=== PATIENT | male | born 1940 | race Caucasian/White ===

== ENCOUNTER → 2017-03-09 | Outpatient (CLI) | payer MEDICARE, BC ==
[~2017-03-09] MED LIST: ACID REDUCER10 MG PO; ACTOS30 MG PO; ALPHAGAN P 5 ML5 M1 OPH; ASPIR 8181 MG PO; ASPIRIN CHEWABL81 MG PO; ASPIRIN PO; ATENOLOL PO; ATENOLOL25 MG PO; ATORVASTATIN CA40 M1 PO; B-50 COMPLEX PO; BACTRIM DS 8001 TA1 PO; CIPRO500 MG PO; GLUCOPHAGE1000 MG PO; LANTUS100 U/ML SQ; LIPITOR40 MG PO; LUMIGAN50 DRP OPH; METFORMIN HCL1000 MG PO; PLAVIX75 MG PO; PRAVACHOL80 MG PO; SUPER EPA 2002000 MG PO; VIT D PO; [UNRECOGNIZED DRUG - OTHER] PO
[2017-03-09 08:05] LABS: HEMOGLOBIN A1c 6.9 % (4.8-5.6)
== END | disposition home or self-care (01) ==
LOC: LAB 06:57
DX: E11.9 Type 2 diabetes mellitus without complications (principal)

== ENCOUNTER 2017-03-15 19:20 | Emergency (ER) | payer MEDICARE, BC ==
[~2017-03-15] VITALS: Ht 182.8 cm; Wt 97.5 kg
[2017-03-15 19:40] VITALS: BP 126/61
[2017-03-15] MEDS ORDERED: FISH OIL500 M2 PO (19:43)
[2017-03-15] MEDS ORDERED: XALATAN 0.005%2.5 ML INTRAOC (19:45)
[2017-03-15] MEDS ORDERED: BETIMOL5 M1 OP (19:45)
[2017-03-15] MEDS ORDERED: KEFLEX500 M1 PO (19:52)
== END 2017-03-15 20:00 | disposition home or self-care (01) ==
LOC: ED 19:20
DX: L03.113 Cellulitis of right upper limb (principal); Z88.8 Allergy status to other drugs, medicaments and biological substances; Z79.4 Long term (current) use of insulin; Z79.82 Long term (current) use of aspirin; Z79.899 Other long term (current) drug therapy; Z95.1 Presence of aortocoronary bypass graft

== ENCOUNTER → 2017-09-13 | Outpatient (CLI) | payer MEDICARE, BC ==
[~2017-09-13] MED LIST changes: +BETIMOL5 M1 OP; +FISH OIL500 M2 PO; +KEFLEX500 M1 PO; +XALATAN 0.005%2.5 ML INTRAOC
[2017-09-13 09:36] LABS: CHLORIDE 104 mmol/L (98-107); POTASSIUM 4.2 mmol/L (3.5-5.1); SODIUM 138 mmol/L (136-145)
[2017-09-13 09:43] LABS: ALBUMIN 3.8 gm/dl (3.1-4.5); ALKALINE PHOSPHATASE 75 U/L (45-117); BUN 26 mg/dl (7-24); CREATININE 0.98 mg/dL (0.70-1.30); SGOT/AST 19 IU/L (3-35); SGPT/ALT 27 U/L (12-78); TOTAL PROTEIN 7.3 gm/dL (6.4-8.2)
== END | disposition home or self-care (01) ==
LOC: LAB 08:31
DX: E11.9 Type 2 diabetes mellitus without complications (principal)

== ENCOUNTER → 2017-11-02 | Outpatient (CLI) | payer MEDICARE, BC ==
[2017-11-02 10:06] LABS: VITAMIN D, 25-HYDROXY 51.9 ng/mL (30-100)
== END | disposition home or self-care (01) ==
LOC: LAB 07:13
PROVIDERS: Psychiatry & Neurology Neurology
DX: G62.9 Polyneuropathy, unspecified (principal); R27.0 Ataxia, unspecified; E11.9 Type 2 diabetes mellitus without complications

== ENCOUNTER 2017-12-04 00:29 | Emergency (ER) | payer MEDICARE, BC ==
[~2017-12-04] VITALS: Ht 185.4 cm; Wt 99.8 kg
[2017-12-04 00:39] VITALS: BP 138/57
[2017-12-04] MEDS ORDERED: MEDROL DOSEPAK4 MG PO (02:07)
[2017-12-04] MEDS ORDERED: NAPROSYN500 MG PO (02:07)
[2017-12-04] MEDS ORDERED: CYCLOBENZAPRINE10 MG PO (02:07)
== END 2017-12-04 02:11 | disposition home or self-care (01) ==
LOC: ED 00:29
DX: S16.1XXA Strain of muscle, fascia and tendon at neck level, initial encounter (principal); F17.200 Nicotine dependence, unspecified, uncomplicated; Z88.8 Allergy status to other drugs, medicaments and biological substances; Z79.899 Other long term (current) drug therapy; Z79.82 Long term (current) use of aspirin; X58.XXXA Exposure to other specified factors, initial encounter; Y93.89 Activity, other specified; Y92.89 Other specified places as the place of occurrence of the external cause; Y99.8 Other external cause status

== ENCOUNTER 2018-02-23 09:39 | Emergency (ER) | payer MEDICARE, BC ==
[~2018-02-23] VITALS: Ht 182.8 cm; Wt 98.9 kg
[~2018-02-23 09:39] MED LIST changes: +CYCLOBENZAPRINE10 MG PO; +MEDROL DOSEPAK4 MG PO; +NAPROSYN500 MG PO
[2018-02-23 10:29] LABS: BASO % 0.6 % (0.0-1.0); EOS # 0.1 10*3/uL (0.0-0.4); EOS % 1.5 % (1.0-4.0); HEMOGLOBIN 13.3 g/dl (14.0-18.0); LYMPH # 2.1 10*3/uL (1.3-4.4); MEAN CELL VOLUME 96.5 fl (80.0-94.0); MEAN CORPUSCULAR HGB 31.3 pg (27.0-31.0); MEAN CORPUSCULAR HGB CONC 32.4 g/dl (33.0-37.0); MEAN PLATELET VOLUME 11.8 fl (9.6-12.3); MONO # 0.5 10*3/uL (0.1-1.0); MONO % 7.6 % (3.0-9.0); PLATELET COUNT AUTOMATED 163 10*3/uL (130-400); RED BLOOD COUNT 4.25 10*6/uL (4.50-5.90); RED CELL DISTRI WIDTH 14.2 % (0-14.5); WHITE BLOOD COUNT 6.7 10*3/uL (4.8-10.8)
[2018-02-23 10:38] LABS: BILIRUBIN NEGATIVE (NEGATIVE); BLOOD NEGATIVE (NEGATIVE); CLARITY SL CLOUDY (CLEAR); COLOR YELLOW (YELLOW); GLUCOSE NEGATIVE (NEGATIVE); KETONE NEGATIVE (NEGATIVE); LEUKO ESTERASE NEGATIVE (NEGATIVE); NITRITE NEGATIVE (NEGATIVE); UROBILINOGEN 0.2 E.U./dl (0.2-1.0)
[2018-02-23 10:42] LABS: ACT PARTIAL THROMBO TIME 25.4 SECONDS (20.8-31.5); INTERNATIONAL NORM RATIO 1.1 (2.0-3.5)
[2018-02-23 10:44] LABS: ALBUMIN 3.5 gm/dl (3.1-4.5); ALKALINE PHOSPHATASE 68 U/L (45-117); BUN 22 mg/dl (7-24); CHLORIDE 102 mmol/L (98-107); CREATININE 1.01 mg/dL (0.70-1.30); POTASSIUM 4.5 mmol/L (3.5-5.1); SGOT/AST 22 IU/L (3-35); SGPT/ALT 26 U/L (12-78); SODIUM 139 mmol/L (136-145); TOTAL PROTEIN 6.8 gm/dL (6.4-8.2)
[2018-02-23 10:55] LABS: BACTERIA TRACE; MUCOUS 1+
[2018-02-23 11:24] VITALS: BP 144/54
== END 2018-02-23 11:55 | disposition home or self-care (01) ==
LOC: ED 09:39
PROVIDERS: Emergency Medicine
DX: R41.0 Disorientation, unspecified (principal); R51 Headache; R00.1 Bradycardia, unspecified; I10 Essential (primary) hypertension; E11.9 Type 2 diabetes mellitus without complications; Z98.890 Other specified postprocedural states; Z95.1 Presence of aortocoronary bypass graft; Z79.899 Other long term (current) drug therapy; Z79.82 Long term (current) use of aspirin; Z88.8 Allergy status to other drugs, medicaments and biological substances; Z79.4 Long term (current) use of insulin

== ENCOUNTER → 2018-03-01 | Outpatient (CLI) | payer MEDICARE, BC ==
[2018-03-01 08:34] LABS: CHLORIDE 102 mmol/L (98-107); POTASSIUM 4.2 mmol/L (3.5-5.1); SODIUM 139 mmol/L (136-145)
[2018-03-01 09:00] LABS: ALBUMIN 3.6 gm/dl (3.1-4.5); ALKALINE PHOSPHATASE 67 U/L (45-117); CHOLESTEROL 122 mg/dL (<200); CREATININE 0.96 mg/dL (0.70-1.30); HDL CHOLESTEROL 37 mg/dl (40-60); LDL CHOLESTEROL 70 mg/dL (9-159); SGOT/AST 21 IU/L (3-35); SGPT/ALT 23 U/L (12-78); TRIGLYCERIDES 75 mg/dl (<150); VLDL CHOLESTEROL 15 mg/dL (6-40)
[2018-03-01 09:48] LABS: BUN 22 mg/dl (7-24)
== END | disposition home or self-care (01) ==
LOC: LAB 07:05
DX: E11.65 Type 2 diabetes mellitus with hyperglycemia (principal); E78.2 Mixed hyperlipidemia

== ENCOUNTER → 2018-05-10 | Outpatient (CLI) | payer MEDICARE, BC ==
[~2018-05-10] MED LIST changes: -BETIMOL5 M1 OP; +BETIMOL5 M1 OU; +LEVOTHYROXINE50 MCG PO; -XALATAN 0.005%2.5 ML INTRAOC; +XALATAN 0.005%2.5 ML OU
--- NOTE | ~2018-05-10 | ST ---
[place], [place] EXERCISE STRESS TEST REPORT [id number] UN[facility] #: [id number] ROOM: DOCTOR: KANDICE UPTON MD BIRTHDATE: [birth year] DOS: 05/10/2018 LEXISCAN PORTION OF THE LEXISCAN CARDIOLITE Baseline cardiogram normal sinus rhythm with nonspecific ST-T changes, 0.4 mg of Lexiscan, duration of 10 seconds, the patient did have some ST depression in the inferior leads and also the lateral leads, also has some chest heaviness. Isolated PVCs are present. ST slowly reverted back to baseline. FINAL IMPRESSION: Abnormal EKG response with ST depression in the inferior and lateral leads. Positive chest pressure. Positive shortness of breath. Blood pressure and heart rate response were normal. Nuclear images will be reported separately. KANDICE UPTON MD CM:STRESS:EXERCISE STRESS TEST REPORT [id number] KANDICE UPTON MD
== END | disposition home or self-care (01) ==
LOC: CARD 01:57
DX: R94.31 Abnormal electrocardiogram [ECG] [EKG] (principal); I25.10 Atherosclerotic heart disease of native coronary artery without angina pectoris

== ENCOUNTER → 2018-09-09 | Outpatient (CLI) | payer MEDICARE, BC ==
[2018-09-09 08:06] LABS: ALBUMIN 3.6 gm/dl (3.1-4.5); ALKALINE PHOSPHATASE 77 U/L (45-117); BUN 27 mg/dl (7-24); CHLORIDE 102 mmol/L (98-107); CHOLESTEROL 134 mg/dL (<200); CREATININE 0.95 mg/dL (0.70-1.30); HDL CHOLESTEROL 39 mg/dl (40-60); LDL CHOLESTEROL 76 mg/dL (9-159); POTASSIUM 4.4 mmol/L (3.5-5.1); SGOT/AST 24 IU/L (3-35); SGPT/ALT 29 U/L (12-78); SODIUM 139 mmol/L (136-145); TOTAL PROTEIN 6.9 gm/dL (6.4-8.2); TRIGLYCERIDES 93 mg/dl (<150); VLDL CHOLESTEROL 19 mg/dL (6-40)
[2018-09-09 08:11] LABS: FREE T4 1.18 ng/dl (0.76-1.46)
== END | disposition home or self-care (01) ==
LOC: LAB 07:05
PROVIDERS: Physician Assistant Medical
DX: E11.65 Type 2 diabetes mellitus with hyperglycemia (principal); I10 Essential (primary) hypertension; E78.00 Pure hypercholesterolemia, unspecified; E03.9 Hypothyroidism, unspecified

== ENCOUNTER → 2019-07-06 | Outpatient (CLI) | payer MEDICARE, BC ==
[~2019-07-06] MED LIST changes: +BALANCED B-501 EAC1 PO; +FISH OIL 1,0001 EAC3 PO; +RANEXA500 M1 PO; +SIMBRINZA 1%-0.28 ML OP; +VITAMIN D-32000 UNI1 PO
[2019-07-06 15:21] LABS: ACT PARTIAL THROMBO TIME 27.9 SECONDS (20.0-32.1)
== END | disposition home or self-care (01) ==
LOC: LAB 13:34 → RAD 13:34
PROVIDERS: Internal Medicine
DX: M48.56XA Collapsed vertebra, not elsewhere classified, lumbar region, initial encounter for fracture (principal); D68.8 Other specified coagulation defects

== ENCOUNTER → 2019-07-10 | Outpatient (CLI) | payer MEDICARE, BC ==
[~2019-07-10] VITALS: Ht 182.8 cm; Wt 102.1 kg
[2019-07-10 08:05] LABS: ACT PARTIAL THROMBO TIME 27.8 SECONDS (20.0-32.1)
--- NOTE | 2019-07-10 09:00 | NUR ---
DR. ROBLEDO SPOKE TO PATIENT AND FAMILY. PROCEDURE CANCELLED. IV D'CD, CATHETER INTACT, 2X2 APPLIED. DISCHARGED AMBULATORY WITH FAMILY.
== END | disposition home or self-care (01) ==
LOC: SDC 07-07 01:51
PROVIDERS: Internal Medicine
DX: M48.56XA Collapsed vertebra, not elsewhere classified, lumbar region, initial encounter for fracture (principal); I25.10 Atherosclerotic heart disease of native coronary artery without angina pectoris; I10 Essential (primary) hypertension; E11.9 Type 2 diabetes mellitus without complications; K21.9 Gastro-esophageal reflux disease without esophagitis; I25.2 Old myocardial infarction; Z95.5 Presence of coronary angioplasty implant and graft; Z98.890 Other specified postprocedural states; Z82.3 Family history of stroke

== ENCOUNTER 2019-12-08 17:51 | Inpatient (IN) | payer MEDICARE, BC ==
[~2019-12-08] VITALS: Ht 182.8 cm; Wt 96.6 kg
[2019-12-08 17:55] VITALS: BP 164/71
[2019-12-08 18:22] LABS: BASO % 0.3 % (0.0-1.0); HEMATOCRIT 40.6 % (42.0-52.0); HEMOGLOBIN 13.4 g/dl (14.0-18.0); LYMPH % 14.5 % (27.0-41.0); MEAN CELL VOLUME 97.4 fl (80.0-94.0); MEAN CORPUSCULAR HGB 32.1 pg (27.0-31.0); MEAN PLATELET VOLUME 11.5 fl (9.6-12.3); MONO # 0.1 10*3/uL (0.1-1.0); NEUT % 83.5 % (47.0-73.0); PLATELET COUNT AUTOMATED 170 10*3/uL (130-400); RED BLOOD COUNT 4.17 10*6/uL (4.50-5.90); WHITE BLOOD COUNT 7.2 10*3/uL (4.8-10.8)
[2019-12-08 18:34] LABS: ALBUMIN 3.5 gm/dl (3.1-4.5); ALKALINE PHOSPHATASE 69 U/L (45-117); BUN 22 mg/dl (7-24); CHLORIDE 107 mmol/L (98-107); CREATININE 0.99 mg/dL (0.70-1.30); POTASSIUM 4.5 mmol/L (3.5-5.1); SGOT/AST 39 IU/L (3-35); SGPT/ALT 35 U/L (12-78); SODIUM 139 mmol/L (136-145); TOTAL PROTEIN 6.8 gm/dL (6.4-8.2)
[2019-12-08 18:36] LABS: TROPONIN I < 0.015 ng/ml (<0.045)
[2019-12-08 20:46] VITALS: BP 131/47
[2019-12-08 23:00] VITALS: BP 141/64
--- NOTE | 2019-12-08 23:00 | NUR ---
A 79, admitted to , under the services of Dr. KYRA CANO,HI Fitch with a diagnosis of CHEST PAIN WITH HIGH RISK OF CARDIAC ETIOLOGY. Chief complaint is CHEST PAIN. Patient arrived via wheel chair from ER. Monitor applied. Initial assessment completed. Vital signs taken and recorded. DR. KYRA CANO,HI Fitch notified of admission to the unit. Orders received. See assessment for past medical history, medications and allergies. Patient and/or family oriented to unit. [address] visitation policy reviewed. Clothing/patient valuable form completed. VIRGILIO MIDDLETON
--- NOTE | 2019-12-08 23:46 | NUR ---
PT RESTING COMFORTABLY IN BED. HE STATES THAT HE IS NOT EXPERIENCING ANY CHEST PAIN AT THIS TIME AND "FEELS PERFECTLY FINE" BED IS LOW. CALL LIGHT WITHIN REACH. WILL CONTINUE TO MONITOR.
--- NOTE | 2019-12-09 06:26 | NUR ---
CALL MADE TO DR. AMARO. AWAITING CALL BACK.
[2019-12-09 08:00] VITALS: BP 152/56
--- NOTE | 2019-12-09 10:25 | NUR ---
CONSULT CALLED TO . AWAITING CALL BACK.
--- NOTE | 2019-12-09 11:53 | NUR ---
BSG 261. REFUSING COVERAGE. SAID HE WILL TAKE CARE OF IT AT HOME. ALSO STATING THAT HE WILL BE LEAVING BY 1300 TODAY EVEN IF IS NOT TO HOSPITAL BY THAT TIME. EDUCATION ON RISKS BY LEAVING AMA. STATED HE "DOESN'T CARE .
[2019-12-09 12:00] VITALS: BP 129/41
--- NOTE | 2019-12-09 12:47 | NUR ---
PT SIGNED AMA. HEART MONITOR COLLECTED, IV REMOVED. ROSALBA RN MANAGER ENVIRONMENTAL HEALTH AND SAFETY AWARE. AWARE.
--- NOTE | 2019-12-09 12:51 | NUR ---
Patient signed out AMA. Patient encouraged to stay and advised of possible consequences of premature discharge. Physician and metal furniture assembly supervisor ERIC NAVARRETE notified. Patient instructed what to do regarding care post-departure from the hospital; emergency phone numbers provided. Patent was accompanied by . [facility]
== END 2019-12-09 13:00 | disposition left against medical advice (07) | DRG 313 ==
LOC: ED 17:51 → EDHOLD 22:23 → 4E 22:33
PROVIDERS: Internal Medicine; ADMIT Internal Medicine
DX: R07.89 Other chest pain (principal); I25.10 Atherosclerotic heart disease of native coronary artery without angina pectoris; E78.5 Hyperlipidemia, unspecified; K21.9 Gastro-esophageal reflux disease without esophagitis; E11.9 Type 2 diabetes mellitus without complications; Z53.29 Procedure and treatment not carried out because of patient's decision for other reasons; Z95.5 Presence of coronary angioplasty implant and graft

== ENCOUNTER → 2020-07-11 | Outpatient (CLI) | payer MEDICARE, BC ==
[2020-07-11 09:00] LABS: CHOLESTEROL 131 mg/dL (<200); HDL CHOLESTEROL 39 mg/dl (40-60); LDL CHOLESTEROL 68 mg/dL (9-159); TRIGLYCERIDES 119 mg/dl (<150); VLDL CHOLESTEROL 24 mg/dL (6-40)
== END | disposition home or self-care (01) ==
LOC: LAB 07:04
PROVIDERS: ATTEND Internal Medicine Cardiovascular Disease
DX: E78.5 Hyperlipidemia, unspecified (principal)

== ENCOUNTER → 2020-08-28 | Outpatient (CLI) | payer MEDICARE, BC ==
[2020-08-28 09:23] LABS: BUN 24 mg/dl (7-24); CREATININE 0.93 mg/dL (0.70-1.30)
== END | disposition home or self-care (01) ==
LOC: LAB 08:52
PROVIDERS: ATTEND Physician Assistant Surgical
DX: Z01.812 Encounter for preprocedural laboratory examination (principal); M51.36 Other intervertebral disc degeneration, lumbar region

== ENCOUNTER → 2021-01-16 | Outpatient (CLI) | payer MEDICARE, BC | END | disposition home or self-care (01) | LOC: US 09:16 | PROVIDERS: ATTEND Internal Medicine | DX: I65.23 Occlusion and stenosis of bilateral carotid arteries (principal) ==

== ENCOUNTER 2021-05-19 13:36 | Emergency (ER) | payer MEDICARE, BC ==
[~2021-05-19] VITALS: Ht 182.8 cm; Wt 97.5 kg
[2021-05-19 13:42] VITALS: BP 99/78
== END 2021-05-19 18:19 | disposition home or self-care (01) ==
LOC: ED 13:36
DX: S82.52XA Displaced fracture of medial malleolus of left tibia, initial encounter for closed fracture (principal); E11.40 Type 2 diabetes mellitus with diabetic neuropathy, unspecified; Z88.8 Allergy status to other drugs, medicaments and biological substances; Z79.899 Other long term (current) drug therapy; Z79.4 Long term (current) use of insulin; Z79.82 Long term (current) use of aspirin; Z95.5 Presence of coronary angioplasty implant and graft; X58.XXXA Exposure to other specified factors, initial encounter; Y93.89 Activity, other specified; Y92.89 Other specified places as the place of occurrence of the external cause; Y99.8 Other external cause status

== ENCOUNTER → 2022-01-14 | Outpatient (CLI) | payer MEDICARE, BC | END | disposition home or self-care (01) | LOC: US 08:16 | PROVIDERS: ATTEND Internal Medicine | DX: I65.23 Occlusion and stenosis of bilateral carotid arteries (principal); R42 Dizziness and giddiness ==

== ENCOUNTER 2022-06-05 11:44 | Emergency (ER) | payer MEDICARE, BC ==
[2022-06-05 11:56] VITALS: BP 133/80
[2022-06-05 11:59] LABS: BASO % 0.4 % (0.0-1.0); EOS % 0.6 % (1.0-4.0); HEMATOCRIT 41.1 % (42.0-52.0); LYMPH # 2.1 10*3/uL (1.3-4.4); LYMPH % 31.4 % (27.0-41.0); MEAN CELL VOLUME 91.3 fl (80.0-94.0); MEAN CORPUSCULAR HGB 29.8 pg (27.0-31.0); MEAN CORPUSCULAR HGB CONC 32.6 g/dl (33.0-37.0); MEAN PLATELET VOLUME 11.5 fl (9.6-12.3); MONO # 0.5 10*3/uL (0.1-1.0); NEUT % 59.3 % (47.0-73.0); PLATELET COUNT AUTOMATED 169 10*3/uL (130-400); RED CELL DISTRI WIDTH 13.9 % (0-14.5); WHITE BLOOD COUNT 6.7 10*3/uL (4.8-10.8)
[2022-06-05 12:15] LABS: ACT PARTIAL THROMBO TIME 28.2 SECONDS (20.0-32.1); INTERNATIONAL NORM RATIO 1.1 (2.0-3.5)
[2022-06-05 12:24] LABS: ALKALINE PHOSPHATASE 89 U/L (45-117); BUN 22 mg/dl (7-24); CHLORIDE 106 mmol/L (98-107); CREATININE 0.93 mg/dL (0.70-1.30); POTASSIUM 4.7 mmol/L (3.5-5.1); SGOT/AST 26 IU/L (3-35); SGPT/ALT 28 U/L (12-78); SODIUM 139 mmol/L (136-145); TOTAL PROTEIN 6.7 gm/dL (6.4-8.2)
== END 2022-06-05 15:43 | disposition home or self-care (01) ==
LOC: ED 11:44
PROVIDERS: Emergency Medicine
DX: R07.89 Other chest pain (principal); Z95.1 Presence of aortocoronary bypass graft; Z79.899 Other long term (current) drug therapy; Z79.82 Long term (current) use of aspirin; Z88.8 Allergy status to other drugs, medicaments and biological substances

== ENCOUNTER → 2022-06-26 | Outpatient (CLI) | payer MEDICARE, BC ==
[2022-06-26 08:09] LABS: BASO % 0.4 % (0.0-1.0); EOS # 0.1 10*3/uL (0.0-0.4); EOS % 1.8 % (1.0-4.0); HEMATOCRIT 43.7 % (42.0-52.0); LYMPH # 2.1 10*3/uL (1.3-4.4); LYMPH % 28.9 % (27.0-41.0); MEAN CELL VOLUME 92.4 fl (80.0-94.0); MEAN CORPUSCULAR HGB 29.8 pg (27.0-31.0); MEAN CORPUSCULAR HGB CONC 32.3 g/dl (33.0-37.0); MEAN PLATELET VOLUME 11.4 fl (9.6-12.3); MONO # 0.6 10*3/uL (0.1-1.0); MONO % 8.4 % (3.0-9.0); NEUT # 4.4 10*3/uL (2.3-7.9); NEUT % 60.1 % (47.0-73.0); PLATELET COUNT AUTOMATED 176 10*3/uL (130-400); RED BLOOD COUNT 4.73 10*6/uL (4.50-5.90); RED CELL DISTRI WIDTH 13.9 % (0-14.5); WHITE BLOOD COUNT 7.2 10*3/uL (4.8-10.8)
[2022-06-26 08:25] LABS: ALKALINE PHOSPHATASE 101 U/L (45-117); BUN 19 mg/dl (7-24); CHLORIDE 108 mmol/L (98-107); CREATININE 0.95 mg/dL (0.70-1.30); POTASSIUM 4.1 mmol/L (3.5-5.1); SGOT/AST 24 IU/L (3-35); SGPT/ALT 32 U/L (12-78); SODIUM 141 mmol/L (136-145); TOTAL PROTEIN 7.1 gm/dL (6.4-8.2)
== END | disposition home or self-care (01) ==
LOC: LAB 07:47
PROVIDERS: ATTEND Ophthalmology Ophthalmic Plastic and Reconstructive Surgery
DX: H02.831 Dermatochalasis of right upper eyelid (principal); H02.834 Dermatochalasis of left upper eyelid

== ENCOUNTER → 2023-06-19 | Outpatient (CLI) | payer MEDICARE, BC | END | disposition home or self-care (01) | LOC: US 01:28 | PROVIDERS: ATTEND Internal Medicine | DX: I77.9 Disorder of arteries and arterioles, unspecified (principal); R22.41 Localized swelling, mass and lump, right lower limb; E11.9 Type 2 diabetes mellitus without complications; R20.0 Anesthesia of skin; G64 Other disorders of peripheral nervous system; I25.10 Atherosclerotic heart disease of native coronary artery without angina pectoris; R53.1 Weakness; Z72.0 Tobacco use ==

== ENCOUNTER → 2024-02-19 | Outpatient (CLI) | payer MEDICARE, BC ==
[2024-02-19 08:00] LABS: BASO % 0.7 % (0.0-1.0); EOS # 0.1 10*3/uL (0.0-0.4); EOS % 1.3 % (1.0-4.0); HEMATOCRIT 40.2 % (42.0-52.0); LYMPH # 1.9 10*3/uL (1.3-4.4); LYMPH % 30.9 % (27.0-41.0); MEAN CELL VOLUME 93.1 fl (80.0-94.0); MEAN CORPUSCULAR HGB 28.7 pg (27.0-31.0); MEAN CORPUSCULAR HGB CONC 30.8 g/dl (33.0-37.0); MEAN PLATELET VOLUME 11.5 fl (9.6-12.3); MONO # 0.5 10*3/uL (0.1-1.0); MONO % 7.7 % (3.0-9.0); NEUT # 3.6 10*3/uL (2.3-7.9); NEUT % 59.1 % (47.0-73.0); PLATELET COUNT AUTOMATED 174 10*3/uL (130-400); RED BLOOD COUNT 4.32 10*6/uL (4.50-5.90); RED CELL DISTRI WIDTH 13.7 % (0-14.5); WHITE BLOOD COUNT 6.1 10*3/uL (4.8-10.8)
[2024-02-19 08:37] LABS: ALKALINE PHOSPHATASE 97 U/L (46-116); BUN 19 mg/dl (9-23); CHLORIDE 105 mmol/L (98-107); CHOLESTEROL 107 mg/dL (<200); FREE T4 1.24 ng/dl (0.89-1.76); LDL CHOLESTEROL 57 mg/dL (9-159); POTASSIUM 4.1 mmol/L (3.4-5.1); SGPT/ALT 19 U/L (5-49); TOTAL PROTEIN 6.7 gm/dL (6.0-8.0); TRIGLYCERIDES 73 mg/dl (<150); VITAMIN D, 25-HYDROXY 71.6 ng/mL (30-100)
== END ==
LOC: LAB 07:32
PROVIDERS: ATTEND Internal Medicine
DX: Z13.6 Encounter for screening for cardiovascular disorders (principal); Z13.21 Encounter for screening for nutritional disorder; Z13.0 Encounter for screening for diseases of the blood and blood-forming organs and certain disorders involving the immune mechanism; Z13.1 Encounter for screening for diabetes mellitus; Z13.220 Encounter for screening for lipoid disorders; Z13.228 Encounter for screening for other metabolic disorders; Z13.29 Encounter for screening for other suspected endocrine disorder; Z13.89 Encounter for screening for other disorder; Z13.9 Encounter for screening, unspecified

== ENCOUNTER → 2025-02-22 | Outpatient (CLI) | payer MEDICARE, BC ==
[2025-02-22 07:27] LABS: BASO % 0.3 % (0.0-1.0); EOS # 0.1 10*3/uL (0.0-0.4); EOS % 1.7 % (1.0-4.0); HEMATOCRIT 40.4 % (42.0-52.0); MEAN CELL VOLUME 88.4 fl (80.0-94.0); MEAN CORPUSCULAR HGB 26.9 pg (27.0-31.0); MEAN CORPUSCULAR HGB CONC 30.4 g/dl (33.0-37.0); MEAN PLATELET VOLUME 11.5 fl (9.6-12.3); MONO # 0.6 10*3/uL (0.1-1.0); MONO % 8.2 % (3.0-9.0); NEUT # 4.1 10*3/uL (2.3-7.9); NEUT % 59.3 % (47.0-73.0); PLATELET COUNT AUTOMATED 162 10*3/uL (130-400); RED BLOOD COUNT 4.57 10*6/uL (4.50-5.90); RED CELL DISTRI WIDTH 15.6 % (0-14.5); WHITE BLOOD COUNT 6.9 10*3/uL (4.8-10.8)
[2025-02-22 08:02] LABS: VITAMIN D, 25-HYDROXY 63.6 ng/mL (30-100)
[2025-02-22 08:04] LABS: ALKALINE PHOSPHATASE 92 U/L (46-116); BUN 20 mg/dl (9-23); CHLORIDE 105 mmol/L (98-107); CHOLESTEROL 118 mg/dL (<200); LDL CHOLESTEROL 57 mg/dL (9-159); POTASSIUM 4.4 mmol/L (3.4-5.1); SGPT/ALT 15 U/L (5-49); TOTAL PROTEIN 6.8 gm/dL (6.0-8.0); TRIGLYCERIDES 108 mg/dl (<150)
== END | disposition home or self-care (01) ==
LOC: LAB 02:27
PROVIDERS: ATTEND Internal Medicine
DX: Z12.5 Encounter for screening for malignant neoplasm of prostate (principal); I10 Essential (primary) hypertension; E11.65 Type 2 diabetes mellitus with hyperglycemia; E03.9 Hypothyroidism, unspecified; R53.83 Other fatigue; E53.9 Vitamin B deficiency, unspecified; E55.9 Vitamin D deficiency, unspecified; R97.20 Elevated prostate specific antigen [PSA]